=== PATIENT | female | born 1960 | race Caucasian/White ===

== ENCOUNTER 2018-11-29 09:35 | Emergency (ER) | payer OTHER ==
[~2018-11-29] VITALS: Ht 160 cm; Wt 122.5 kg
[2018-11-29] MEDS ORDERED: CENTRUM SILVER1 EAC4 PO (09:42)
[2018-11-29] MEDS ORDERED: FOLBIC RF TABL1 EACH PO (09:43)
[2018-11-29] MEDS ORDERED: IBUPROFEN 400400 M2 PO (09:43)
[2018-11-29 10:59] LABS: URINE BILIRUBIN NEGATIVE (Negative); URINE BLOOD NEGATIVE (Negative); URINE CLARITY CLEAR; URINE COLOR YELLOW; URINE GLUCOSE-RANDOM NEGATIVE (Negative); URINE KETONES NEGATIVE (Negative); URINE LEUKOCYTES-REFLEX NEGATIVE (Negative); URINE NITRITE-REFLEX NEGATIVE (Negative); URINE PROTEIN NEGATIVE (Negative); URINE SPECIFIC GRAVITY 1.015 (1.005-1.030); URINE UROBILINOGEN 0.2 E.U./dl (0.2-1.0)
[2018-11-29 11:35] VITALS: BP 189/96
[2018-11-29] MEDS ORDERED: LIDODERM1 EACH TOP (11:38)
[2018-11-29] MEDS ORDERED: MEDROLDOSEPACK PO (11:38)
== END 2018-11-29 11:35 | disposition home or self-care (01) ==
LOC: M.ERS 09:35
PROVIDERS: Physician Assistant
DX: M54.14 Radiculopathy, thoracic region (principal); M62.830 Muscle spasm of back; F17.210 Nicotine dependence, cigarettes, uncomplicated; Z90.49 Acquired absence of other specified parts of digestive tract; Z90.721 Acquired absence of ovaries, unilateral; Z88.5 Allergy status to narcotic agent; Z88.6 Allergy status to analgesic agent

== ENCOUNTER → 2018-12-01 | Outpatient (CLI) | payer OTHER ==
[~2018-12-01] MED LIST: CENTRUM SILVER1 EAC4 PO; FOLBIC RF TABL1 EACH PO; IBUPROFEN 400400 M2 PO; LIDODERM1 EACH TOP; MEDROLDOSEPACK PO
== END ==
LOC: M.MRI 11:32
DX: S12.501D Unspecified nondisplaced fracture of sixth cervical vertebra, subsequent encounter for fracture with routine healing (principal); M47.22 Other spondylosis with radiculopathy, cervical region; M50.11 Cervical disc disorder with radiculopathy, high cervical region; M48.02 Spinal stenosis, cervical region; M54.6 Pain in thoracic spine; X58.XXXD Exposure to other specified factors, subsequent encounter

== ENCOUNTER → 2018-12-16 | Outpatient (CLI) | payer OTHER | LOC: M.RAD 09:59 | DX: Z13.820 Encounter for screening for osteoporosis (principal); Z87.81 Personal history of (healed) traumatic fracture; Z78.0 Asymptomatic menopausal state; Z88.8 Allergy status to other drugs, medicaments and biological substances ==

== ENCOUNTER → 2018-12-22 | Outpatient (CLI) | payer OTHER ==
[~2018-12-22] MED LIST changes: +AMITRIPTYLINE H10 M3 PO; +FLEXERIL PO; +GABAPENTIN 100100 MG PO
--- NOTE | ~2018-12-22 | PAINCON ---
[address] [address] PAIN MANAGEMENT CONSULTATION Name: THEO SMITH [facility] [id number] Admission: 12/22/18 Attend Phys: Mercedes Clark MD Discharge: Date of : 58 Report #: [id number] THIS REPORT FOR: //name// CC: Mercedes Amezquita DATE OF SERVICE: 12/22/2018 CHIEF COMPLAINT: Neck and arm pain. HISTORY OF PRESENT ILLNESS: The patient is a 58-year-old female who has been referred to the pain clinic for evaluation of neck and arm pain. The patient has had pain, which has increased over the past few weeks. It was quite problematic. As a result of the pain, she went to the Emergency Room. At that time, she complained of numbness and tingling in her hands and some in her feet. Denies any trauma. The patient has not had surgery. She describes the pain as sharp with a deep ache in her neck. Notes that her pain is worse when she is extending her arms. She has tried nonsteroidal anti-inflammatory medications. She did have a history of a fracture at C6 and C7 some years ago. The patient has tried Flexeril, also has taken a Medrol dosing of steroids. The most uncomfortable feeling today is that involving her right arm. She feels as though there is some electricity shooting through it. Feels that there is a rubber band around it, constricting it. She rates it as approximately 10/10 at this point. 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 ALLERGIES: ACETAMINOPHEN from [facility], HYDROCODONE from [facility]. MEDICATIONS: B12, calcium, B6, Flexeril 10 mg t.i.d., Motrin 400 mg q. 6 hours, multivitamin, and Centrum silver. PAST MEDICAL HISTORY: Neck surgery C6-C7. PAST SURGICAL HISTORY: Tonsillectomy and adenoidectomy 1963, right oophorectomy/appendectomy in 1981. Neck surgery C6/C7 in 2006 with cadaver bone placed. 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 She is working at this juncture. REVIEW OF SYSTEMS: Generally good health, fatigue, weakness, wears glasses, weakness of muscles, muscle pain, back pain, difficulty walking, numbness and tingling sensation. PAIN CLINIC ASSESSMENT/PQRS: 1. History of osteoarthritis. The patient had osteoarthritic change in her neck. She had surgery and fusion at C5-C6. 2. Arthritis patient is not [place] [address] PAIN MANAGEMENT CONSULTATION Name: THEO SMITH Room: [facility]#: [id number] Admission: 12/22/18 Attend Phys: Mercedes Clark MD Discharge: Date of : 58 Report #: [id number] 3. Height 5 feet 4 inches, weight 270 pounds. 4. VITAL SIGNS: Blood pressure 161/106, second blood pressure 170/106, heart rate 103, respiratory rate 16, room air saturation is 95%, temperature 98.4. 5. Pain intensity 7/10. 6. Fall risk. The patient has a fall has not fallen in the last 3 months. 7. Blood thinner. The patient is not on a blood thinning medication. 8. Hypertension. The patient is being treated for hypertension. 9. Opioids greater than 6 weeks. The patient is not receiving opioids on a regular basis. 10. Risk assessment tool, low for opioid use. 11. Functional assessment tool. 12. Recreational drug use. The patient denies use of recreational drugs. 13. Tobacco: The patient does smoke cigarettes, approximately 2 packs per day. 14. Alcohol: The patient denies use of frequent use of alcoholic drugs. PHYSICAL EXAMINATION: GENERAL: The patient is a well-developed, well-nourished, somewhat obese white female, appears her stated age. She is alert and oriented x 3. Her affect is appropriate. Speech is fluent. HEENT: Normocephalic, atraumatic. Extraocular eye muscles intact. Sclerae nonicteric. Mucous membranes are moist. NECK: Without adenopathy or JVD. The patient has a well-healed scar in the anterior area near the C6 and C7 area. She complains of pain and discomfort with numbness down into her left arm with a feeling of tingling and electricity in this area. Feels that there is tight band around the biceps area. HEART: Regular rate. ABDOMEN: Nontender, protuberant. Bowel sounds present. EXTREMITIES: Upper extremity muscle strength on the right, judged to be 4+/5 and on the left is 5-/5. The patient without significant scoliosis, kyphosis or lordosis. Lower extremity muscle strength is judged to be 5-/5 for the major muscle groups in the lower extremity. Deep tendon reflexes are difficult to appreciate in the patellar as well as the ankle jerks. Forward bending to about 90 degrees caused some slight increase in pain. Forward leaning reproduce some soreness that the patient has been experiencing in the low back area. IMPRESSION: 1. Cervical radiculopathy with pain radiating down into both arms with numbness and tingling in the left arm and a tight band like sensation around the right biceps. 2. Tobacco use. RECOMMENDATION: The patient is having pain and discomfort in the neck area. As you recall, she has had cervical fusion at C6-C7. Continues to have some numbness and tingling down into her right arm as well as some feeling of tightness in the right biceps. She has undergone EMGs a number of years ago. Nothing that has been performed since this problem. She is using Neurontin [address] [place] [address] PAIN MANAGEMENT CONSULTATION Name: THEO SMITH Room: [facility]#: [id number] Admission: 12/22/18 Attend Phys: Mercedes Clark MD Discharge: Date of : 58 Report #: [id number] mg at bedtime. She stopped this secondary to side effects. She also has been using Flexeril 10 mg t.i.d. p.r.n. for muscle spasms. She tried a Medrol Dosepak. She had 2 rounds of this. Pain has persisted. She will return to the pain clinic at which time a cervical epidural steroid injection will be performed. She also has pain and discomfort that radiates down into her legs below the knees bilaterally. This seems more like a neuropathic type of pain. We will have the patient try Elavil 10 mg at bedtime. She will slowly increase this medication as we have directed. Hopefully, she will find sleeping, it becomes more beneficial. Hopefully, the numbness and tingling sensation in the neck as well as lower extremities will improve. We will decrease her Neurontin from 300 mg to 100 mg and she will try this 100 mg 3 times daily. She will return to the pain clinic after precertification from her insurance carrier. At that time she will then undergo a cervical epidural steroid injection to help decrease the pain and discomfort which she is experiencing. We have discussed the possible complications of the procedure, which could include but are not limited to infection, bleeding, worsening of pain, headache, nerve damage. We have also used a model to point out to the patient the area of probable pathology. She will call us if she has any concerns with the amitriptyline or the gabapentin. Again, once the patient returned to the pain clinic, we will proceed with a cervical epidural steroid injection to help quell her pain. We would like to thank you for letting us participate in her care. We hope she continues to improve. By: [id number]. Sandro Clark MD /nt
== END ==
LOC: M.PC 04:54
DX: M54.16 Radiculopathy, lumbar region (principal); R20.0 Anesthesia of skin; M79.601 Pain in right arm; M79.602 Pain in left arm; F17.200 Nicotine dependence, unspecified, uncomplicated; Z79.899 Other long term (current) drug therapy

== ENCOUNTER → 2018-12-24 | Outpatient (CLI) | payer OTHER ==
--- NOTE | ~2018-12-24 | PAINCON ---
[address] [address] PAIN MANAGEMENT CONSULTATION Name: THEO SMITH Room: [facility]#: [id number] Admission: 12/24/18 Attend Phys: Mercedes Clark MD Discharge: Date of : 58 Report #: [id number] THIS REPORT FOR: //name// CC: Mercedes Amezquita NP DATE OF SERVICE: 12/24/2018 CHIEF COMPLAINT: Neck and arm pain. HISTORY: The patient is a 58-year-old female who has been seen in the Pain Clinic. She has pain and discomfort, which is quite problematic. She has been experiencing pain with numbness and tingling in her hands. She denies any trauma. She has not had surgery. She has tried nonsteroidal anti-inflammatory medications. Does have a history of a fracture at C6-C7, some years ago. Medrol Dosepak was tried, but the patient continues to have pain, which is uncomfortable. She feels like she is having some electricity moving down into her hands. She feels sometimes as though she has some rubber around her arm and that it is essie. ALLERGIES: ACETAMINOPHEN FROM [facility], HYDROCODONE FROM [facility] PAIN CLINIC ASSESSMENT/PQRS: 1. The patient has osteoarthritic changes in her neck. She has had surgery and fusion at C6-C7. 2. Arthritis. The patient is not being treated for rheumatoid arthritis. 3. Height 5 feet 4 inches, weight 270 pounds, BMI is 46.0. 4. Vital Signs: Blood pressure 171/97, heart rate 95, respiratory rate 16, room air saturation 95%, temperature is 98.2. 5. Pain intensity, 01/04. 6. Fall history: The patient has not fallen in the last 3 months. 7. Blood thinner. The patient is not on a blood thinning medication. 8. Hypertension. The patient is not being treated for hypertension. 9. Opioids greater than 6 weeks. The patient is not receiving opioid medication on a regular basis. 10. Risk assessment tool, low for opioid use. 11. Functional assessment tool. 12. Recreational drug use. The patient denies use of recreational drugs. 13. Tobacco: The patient does smoke cigarettes, approximately 2 packs a day. 14. Alcohol. The patient denies recurrent use of alcoholic beverages. PHYSICAL EXAMINATION: GENERAL: The patient is a well-developed, well-nourished, somewhat obese white female, appears her stated age. She is alert and oriented x 3. Her affect is appropriate. [place] [address] PAIN MANAGEMENT CONSULTATION Name: THEO SMITH Dayanna Room: [facility]#: [id number] Admission: 12/24/18 Attend Phys: Mercedes Clark MD Discharge: Date of : 58 Report #: [id number] HEENT: Normocephalic, atraumatic. Extraocular eye muscles intact. Sclerae nonicteric. Mucous membrane moist. NECK: Without adenopathy or JVD. The patient has a well-healed scar in the anterior portion at the C6-C7 area. The patient has pain and discomfort with numbness radiates down to the left arm with a feeling of tingling and electricity in this area. The patient feels as a tight band around the biceps of her arm. HEART: Regular rate. S1, S2. Distant tones. ABDOMEN: Nontender. Bowel sounds are distant. EXTREMITIES: Upper extremity muscle strength is judged to be 4+/5 on the right and left is 5-/5. The patient is without significant scoliosis, kyphosis or lordosis. Lower extremity muscle strength is judged to be 5-/5 for the major muscle groups in the lower extremity. IMPRESSION: 1. Cervical radiculopathy with pain radiating down into both arms with numbness and tingling in the left arm and a tight band like sensation around the right bicep. 2. Chronic tobacco use. 3. Obesity. RECOMMENDATIONS: We discussed treatment options with the patient. Risks and benefits of a cervical epidural steroid injection were discussed. They include but are not limited to infection, worsening of pain, no improvement in pain, bleeding, spinal headache. The patient elects to proceed. PROCEDURE NOTE: The patient was taken to the procedure area. She was then placed in the appropriate position with a pillow under her chest to improve positioning. Her neck was sterilely prepped with a Betadine solution. Fluoroscopy using anterior folks posterior as well as lateral viewing were implemented. The patient's neck was infiltrated with 0.25% bupivacaine. A skin wheal was prepared at C7/T1. This area was then infiltrated with 0.25% bupivacaine to numb it. A 17-gauge Tuohy with loss of resistance technique was used to gain access to the epidural space. There was no CSF, heme or paresthesia. Total of 20 seconds fluoroscopy time was used. A total of 120 mg triamcinolone was injected. The patient tolerated the procedure well. Her pain decreased to 2 at the time of discharge. She will follow up in the future as needed. We would like to thank you for letting us participate in her care. We hope she continues to improve. By: [id number]. Sandro Clark MD /jonas
== END | disposition home or self-care (01) ==
LOC: M.PC 12:35
DX: M54.12 Radiculopathy, cervical region (principal); G89.29 Other chronic pain; E66.09 Other obesity due to excess calories; F17.210 Nicotine dependence, cigarettes, uncomplicated; Z88.8 Allergy status to other drugs, medicaments and biological substances; Z68.42 Body mass index [BMI] 45.0-49.9, adult; Z79.899 Other long term (current) drug therapy

== ENCOUNTER → 2018-12-30 | Outpatient (CLI) | payer OTHER ==
[2018-12-30 10:39] LABS: URINE BILIRUBIN NEGATIVE (Negative); URINE BLOOD NEGATIVE (Negative); URINE CLARITY CLEAR; URINE COLOR YELLOW; URINE GLUCOSE-RANDOM NEGATIVE (Negative); URINE KETONES NEGATIVE (Negative); URINE LEUKOCYTES NEGATIVE (Negative); URINE NITRITE NEGATIVE (Negative); URINE PROTEIN TRACE (Negative); URINE SPECIFIC GRAVITY >= 1.030 (1.005-1.030); URINE UROBILINOGEN 0.2 E.U./dl (0.2-1.0)
[2018-12-30 10:39] LABS: HEMATOCRIT 50.1 % (37.0-47.0); HEMOGLOBIN 16.8 gm/dL (12.0-15.0); MCH 32.1 pg (26.0-34.0); MCHC 33.5 g/dL (28.0-37.0); MCV 95.9 fL (80.0-100.0); MPV 10.4 fl. (7.2-11.1); NUCLEATED RBCS 0 /100WBC; PLATELET COUNT* 232 thou/uL (150-400); RBC 5.23 mil/uL (4.20-5.00); RDW-CV 13.2 % (10.5-14.5); WBC 13.5 thou/uL (4.0-11.0)
[2018-12-30 11:01] LABS: ABSOLUTE EOSINOPHILS 0.1 thou/uL (0.0-0.7); ABSOLUTE LYMPHOCYTES 0.7 thou/uL (0.8-5.3); ABSOLUTE MONOCYTES 1.8 thou/uL (0.0-1.2); ABSOLUTE NEUTROPHILS 10.9 thou/uL (1.6-8.1)
[2018-12-30 11:02] LABS: ANISOCYTOSIS 1+; PLATELET ESTIMATE ADEQUATE; POIKILOCYTOSIS 1+
[2018-12-30 11:13] LABS: ALKALINE PHOSPHATASE 59 U/L (46-116); ANION GAP 14 mmol/L (7-16); BUN 25 mg/dL (7-18); CHLORIDE 99 mmol/L (98-107); CHOLESTEROL 229 mg/dL (<200); CO2 22 mmol/L (21-32); CREATININE 1.3 mg/dL (0.6-1.3); GLUCOSE 313 mg/dL (70-99); HDL CHOLESTEROL 63 mg/dL (>40); LDL CHOLESTEROL 136 mg/dL (<100); POTASSIUM 4.2 mmol/L (3.5-5.1); SGOT 15 U/L (15-37); SGPT 41 U/L (30-65); SODIUM 135 mmol/L (136-145); TC:HDL 3.6 Ratio (Not establshd); TOTAL BILIRUBIN 1.1 mg/dL (<0.1-1.0); TOTAL PROTEIN 7.6 g/dL (6.4-8.2); TRIGLYCERIDE 152 mg/dL (<150); URIC ACID* 4.2 mg/dL (2.6-7.2); VLDL 30 mg/dL (<40)
[2018-12-30 11:22] LABS: SERUM ASSESSMENT Clear
[2018-12-31 12:05] LABS: GLYCOHEMOGLOBIN (HGB A1C) 8.6 % (4.8-5.6)
== END ==
LOC: M.LAB 10:21
PROVIDERS: Family Medicine
DX: M10.9 Gout, unspecified (principal); I10 Essential (primary) hypertension; Z68.42 Body mass index [BMI] 45.0-49.9, adult

== ENCOUNTER 2019-01-06 17:28 | Inpatient (IN) | payer OTHER ==
[~2019-01-06] VITALS: Ht 160 cm; Wt 119.3 kg
[2019-01-06 17:42] VITALS: BP 126/88
[2019-01-06] MEDS ORDERED: LISINOPRIL20 MG PO (17:48)
[2019-01-06] MEDS ORDERED: CHLORTHALIDONE25 MG PO (17:48)
[2019-01-06] MEDS ORDERED: CENTRUM SILVER1 EAC4 PO (17:49)
[2019-01-06 18:27] LABS: HEMATOCRIT 49.9 % (37.0-47.0); HEMOGLOBIN 16.8 gm/dL (12.0-15.0); MCH 32.5 pg (26.0-34.0); MCHC 33.7 g/dL (28.0-37.0); MCV 96.3 fL (80.0-100.0); MPV 10.7 fl. (7.2-11.1); NUCLEATED RBCS 0 /100WBC; PLATELET COUNT* 180 thou/uL (150-400); RBC 5.18 mil/uL (4.20-5.00); RDW-CV 13.1 % (10.5-14.5); WBC 17.4 thou/uL (4.0-11.0)
[2019-01-06 18:35] LABS: ANION GAP 11 mmol/L (7-16); BUN 55 mg/dL (7-18); CALCIUM 10.4 mg/dL (8.5-10.1); CHLORIDE 97 mmol/L (98-107); CO2 26 mmol/L (21-32); CREATININE 3.1 mg/dL (0.6-1.3); GLUCOSE 297 mg/dL (70-99); POTASSIUM 4.6 mmol/L (3.5-5.1); SODIUM 134 mmol/L (136-145)
[2019-01-06 18:45] LABS: ALBUMIN 4.2 g/dL (3.4-5.0); ALKALINE PHOSPHATASE 70 U/L (46-116); SGOT 20 U/L (15-37); SGPT 64 U/L (30-65); TOTAL BILIRUBIN 0.8 mg/dL (<0.1-1.0); TOTAL PROTEIN 7.6 g/dL (6.4-8.2); TROPONIN-I LEVEL <0.06 ng/mL (<0.06)
[2019-01-06 19:04] LABS: ABSOLUTE LYMPHOCYTES 2.1 thou/uL (0.8-5.3); ABSOLUTE MONOCYTES 2.1 thou/uL (0.0-1.2); ABSOLUTE NEUTROPHILS 13.2 thou/uL (1.6-8.1)
[2019-01-06 19:05] LABS: PLATELET ESTIMATE ADEQUATE
[2019-01-06 19:57] LABS: URINE BILIRUBIN NEGATIVE (Negative); URINE BLOOD 3+ (Negative); URINE CLARITY CLEAR; URINE COLOR YELLOW; URINE GLUCOSE-RANDOM TRACE (Negative); URINE KETONES TRACE (Negative); URINE LEUKOCYTES-REFLEX TRACE (Negative); URINE NITRITE-REFLEX NEGATIVE (Negative); URINE PROTEIN 2+ (Negative); URINE SPECIFIC GRAVITY >= 1.030 (1.005-1.030); URINE UROBILINOGEN 0.2 E.U./dl (0.2-1.0)
[2019-01-06 20:15] LABS: HYALINE CASTS >10 Many /LPF (None Seen); SQUAMOUS >10 Many /LPF (0-3)
[2019-01-06 20:16] LABS: BACTERIA-REFLEX 1-9 Few /HPF (None Seen); URINE WBC-REFLEX 0-5 Rare /HPF (0-5)
[2019-01-06 20:17] LABS: CRYSTALS None Seen /LPF (None Seen); URINE RBC 3-10 Few /HPF (0-2)
[2019-01-06 20:18] LABS: MUCUS 0-3 Light strn/LPF (None Seen)
[2019-01-07 00:56] VITALS: BP 141/70
[2019-01-07 04:22] VITALS: BP 112/59
[2019-01-07 11:58] VITALS: BP 134/67
[2019-01-07 16:48] VITALS: BP 122/71
[2019-01-07 17:11] LABS: GLYCOHEMOGLOBIN (HGB A1C) 9.4 % (4.8-5.6)
--- NOTE | 2019-01-07 17:11 | EKG ---
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
[2019-01-07 18:59] LABS: BE -2.3 mmol/L (-2 to +3); PCO2 VENOUS 37.4 mmHg (41.0-51.0); PO2 VENOUS 51.8 mmHg (35.0-45.0)
[2019-01-07 19:04] LABS: ABSOLUTE EOSINOPHILS 0.1 thou/uL (0.0-0.7); ABSOLUTE NEUTROPHILS 8.4 thou/uL (1.6-8.1); BASOPHILS 0.4 %; EOSINOPHILS 0.5 %; HEMATOCRIT 43.3 % (37.0-47.0); LYMPHOCYTES 17.6 %; MCH 32.2 pg (26.0-34.0); MCHC 33.6 g/dL (28.0-37.0); MCV 95.9 fL (80.0-100.0); MONOCYTES 8.7 %; MPV 10.9 fl. (7.2-11.1); NUCLEATED RBCS 0 /100WBC; PLATELET COUNT* 153 thou/uL (150-400); POLYS 72.8 %; RBC 4.52 mil/uL (4.20-5.00); RDW-CV 12.8 % (10.5-14.5); WBC 11.6 thou/uL (4.0-11.0)
--- NOTE | 2019-01-07 19:06 | NUR ---
PATIENT RECEIVED FROM ER AT 1245, ALERT AND ORIENTED X4. VSS. NS AT 130 MLS/HR. ADMISSION PROCESS COMPLETED. TOLERATED HER MEALS. PLANNED FOR CARDIAC STRESS TEST TOMORROW. INSULIN ADMINISTERED PER PROTOCOL. DENIES PAIN.
[2019-01-07 19:15] LABS: ALBUMIN 3.2 g/dL (3.4-5.0); CALCIUM 8.8 mg/dL (8.5-10.1); POTASSIUM 4.6 mmol/L (3.5-5.1); TOTAL BILIRUBIN 0.5 mg/dL (<0.1-1.0); TOTAL PROTEIN 6.2 g/dL (6.4-8.2)
[2019-01-07 19:17] LABS: CREATININE 1.6 mg/dL (0.6-1.3)
[2019-01-07 19:18] LABS: HEMOGLOBIN 14.5 gm/dL (12.0-15.0)
[2019-01-07 20:00] VITALS: BP 131/76
--- NOTE | 2019-01-07 20:00 | NUR ---
RECEIVED REPORT AND ASSUMED CARE OF PT, ASSESSMENT COMPLETED. RESTING IN BED WATCHING TV. NO COMPLAINTS VOICED. DISCUSSED LAB RESULTS AND KIDNEYS. TELEMTRY ON SHOWING SR WITH BBB. WILL CONT TO MONITOR AND ASSIST NEEDED.
[2019-01-07 20:28] LABS: ESR (SEDRATE) 4 mm/hr (0-30)
[2019-01-07 23:53] VITALS: BP 130/66
[2019-01-08 04:00] VITALS: BP 132/79
--- NOTE | 2019-01-08 07:44 | NUR ---
AWAKE FREQ TONIGHT. STATES ALITTLE DIZZY THIS MORNING. TELEMETRY SHOWING SR WITH BBB. ASSESSMENT UNCHANGED. HS GOALS OF REST AND SAFETY ACHIEVED. HOURLY ROUNDING OBSERVED.
[2019-01-08 09:35] VITALS: BP 144/80
--- NOTE | 2019-01-08 10:21 | 2DMMODE ---
[place] [address] 2 D/M-MODE ECHOCARDIOGRAM Name: THEO SMITH Room: [address] IN [facility]#: [id number] Admission: 01/06/19 Attend Phys: Jacek Carver Discharge: Date of : 58 Date of Service: 01/08/19 1021 Report #: [id number] THIS REPORT FOR: //name// APPROVED REPORT Study performed: 01/07/2019 10:00:48 EXAM: Comprehensive 2D, Doppler, and color-flow Echocardiogram Patient Location: In-Patient Room #: er Status: routine BSA: 2.14 HR: 61 bpm BP: 105/52 mmHg Rhythm: NSR Other Information Study Quality: Good Indications Abnormal ECG 2D Dimensions IVSd: 16.35 (7-11mm) LVOT Diam: 18.47 (18-24mm) LVDd: 41.82 mm PWd: 12.31 (7-11mm) Ascending Ao: 27.92 (22-36mm) LVDs: 24.33 (25-40mm) Aortic Root: 27.39 mm Volumes Left Atrial Volume (Systole) LA ESV Index: 20.20 mL/m2 Aortic Valve AoV Peak Prosper.: 1.98 m/s AO Peak Gr.: 15.68 mmHg LVOT Max P.53 mmHg AO Mean Gr.: 8.90 mmHg LVOT Mean P.33 mmHg LVOT Max V: 1.46 m/s AO V2 VTI: 34.71 cm LVOT Mean V: 0.96 m/s ALVARADO (VTI): 2.14 cm2 LVOT V1 VTI: 27.72 cm AI Coffey: 2.16 m/s2 AI PHT: 548.08 ms Mitral Valve E/A Ratio: 1.00 [place] [address] 2 D/M-MODE ECHOCARDIOGRAM Name: THEO SMITH Room: [address] IN .R.#: [id number] Admission: 01/06/19 Attend Phys: Jacek Carver Discharge: Date of : 58 Date of Service: 01/08/19 1021 Report #: [id number] MV Decel. Time: 196.83 ms MV E Max Prosper.: 0.97 m/s MV PHT: 57.08 ms MVA (PHT): 3.85 cm2 TDI E/Lateral E': 9.70 E/Medial E': 10.78 Medial E' Prosper.: 0.09 m/s Lateral E' Prosper.: 0.10 m/s Pulmonary Valve PV Peak Prosper.: 1.35 m/s PV Peak Gr.: 7.26 mmHg Left Ventricle The left ventricle is normal size. There is normal LV segmental wall motion. Moderate concentric left ventricular hypertrophy. Left ventricular systolic function is normal. LVEF is 60-65%. Transmitral Doppler flow pattern suggests impaired LV relaxation. Right Ventricle The right ventricle is normal size. The right ventricular systolic function is normal. Atria The left atrium size is normal. The right atrium size is normal. Aortic Valve The aortic valve is normal in structure. Mild aortic regurgitation. There is no aortic valvular stenosis. Mitral Valve The mitral valve is normal in structure. There is no mitral valve regurgitation noted. No evidence of mitral valve stenosis. Tricuspid Valve The tricuspid valve is normal in structure. Unable to assess PA pressure. Trace tricuspid regurgitation. Pulmonic Valve The pulmonary valve is normal in structure. There is no pulmonic valvular regurgitation. Great Vessels The aortic root is normal in size. IVC is normal in size and collapses >50% [place] [address] 2 D/M-MODE ECHOCARDIOGRAM Name: SARAHTHEO Dayanna Room: [address] IN [facility]#: [id number] Admission: 01/06/19 Attend Phys: Jacek Carver Discharge: Date of : 58 Date of Service: 01/08/19 1021 Report #: [id number] Pericardium There is no pericardial effusion. <Conclusion> The left ventricle is normal size. Moderate concentric left ventricular hypertrophy. Left ventricular systolic function is normal. LVEF is 60-65%. Transmitral Doppler flow pattern suggests impaired LV relaxation. Mild aortic regurgitation. Trace tricuspid regurgitation. <ELECTRONICALLY SIGNED> By: Fernandez Herring MD, FACC 01/08/19 1021 1021 1021 Fernandez Herring MD, FACC /INF
[2019-01-08 10:51] LABS: HEMOGLOBIN 14.5 gm/dL (12.0-15.0); NUCLEATED RBCS 0 /100WBC
[2019-01-08 10:54] LABS: ABSOLUTE BASOPHILS 0.1 thou/uL (0.0-0.2); ABSOLUTE EOSINOPHILS 0.1 thou/uL (0.0-0.7); ABSOLUTE NEUTROPHILS 7.6 thou/uL (1.6-8.1); BASOPHILS 0.9 %; EOSINOPHILS 0.5 %; HEMATOCRIT 42.6 % (37.0-47.0); LYMPHOCYTES 18.6 %; MCH 32.7 pg (26.0-34.0); MCV 96.3 fL (80.0-100.0); MONOCYTES 9.1 %; MPV 11.1 fl. (7.2-11.1); PLATELET COUNT* 135 thou/uL (150-400); POLYS 70.9 %; RBC 4.43 mil/uL (4.20-5.00); RDW-CV 12.9 % (10.5-14.5); WBC 10.8 thou/uL (4.0-11.0)
[2019-01-08 12:18] VITALS: BP 143/73
[2019-01-08 12:19] LABS: CREATININE 1.3 mg/dL (0.6-1.3); POTASSIUM 4.3 mmol/L (3.5-5.1)
--- NOTE | 2019-01-08 16:16 | CARDNUC ---
[place] [address] CARDIAC NUCLEAR IMAGING REPORT Name: THEO SMITH Room: [address] IN [facility]#: [id number] Admission: 01/06/19 Attend Phys: Jacek Carver Discharge: Date of : 58 Date of Service: 01/08/19 1616 Report #: [id number] THIS REPORT FOR: //name// APPROVED REPORT Study performed: 01/07/2019 09:57:00 Indication: dizzyness Patient Location: In-Patient Room #: 215 Stress Tech: Megan Smith Stress Nurse: Sharona Clemens RN Ht: 5 ft 4 in Wt: 254 lbs BSA: 2.17 m2 BMI: 43.59 Medical History Medical History: hyperlipidemia, hypertension Medications: lisinopril, chlorthiadone Allergies: hydrocodone Cardiac Risk Factors: age, hyperlipidemia, hypertension, tobacco, family hx Exercise History: Physically active Resting Data Rest SPECT myocardial perfusion imaging was performed in supine position 30 minutes following the intravenous injection of 38.5 mCi of Tc-99m Sestamibi. Time of rest injection: 1030 The images were gated to evaluate regional wall motion and calculate left ventricular ejection fraction. Administration Route: IV Administration Site: Right Hand Pharmacologic Stress Pharmacologic stress test was performed by injecting Regadenoson 0.4 mg IV push over 10-15 seconds immediately followed by the intravenous injection of 38.6 mCi of Tc-99m Sestamibi. Time of stress injection: 1010 Administration Route: IV Administration Site: Right Hand Heart Rate at time of stress injection: 115 bpm. Gated Stress SPECT was performed 45 minutes after stress injection. The images were gated to evaluate regional [place] [address] CARDIAC NUCLEAR IMAGING REPORT Name: THEO SMITH Room: [address]#: [id number] Admission: 01/06/19 Attend Phys: Jacek Carver Discharge: Date of : 58 Date of Service: 01/08/19 1616 Report #: [id number] left ventricular ejection fraction. Prone imaging was performed. Stress Test Details Stress Test: Pharmacologic stress testing performed using 0.4 mg of regadenoson per 5 mL given IV over 10 seconds. Reason for pharmacologic stress test: LBBB. HR Max Heart Rate (APMHR): 161 bpm Resting HR: 75 bpm Target HR (85% APMHR): 136 bpm Max HR Achieved: 115 bpm % of APMHR: 71 Recovery HR: 108 bpm BP Resting BP: 156/82 mmHg Max BP: 150/105 mmHg Recovery BP: 154/94 mmHg ECG Resting ECG: Sinus Rhythm, LBBB Stress ECG: Sinus Rhythm, LBBB ST Change: None Arrhythmia: None Recovery ECG: Sinus Rhythm, LBBB Recovery ST Change: None Recovery Arrhythmia: None Clinical Reason for Termination: Completed protocol Exercise duration: 0 min sec Exercise capacity: 1 METs The patient tolerated Lexiscan infusion without significant symptoms. Nurse Comments pt tolerated well Stress ECG Conclusion The baseline EKG shows sinus rhythm with left bundle-branch block. EKGs obtained during and post Lexiscan infusion showed sinus rhythm and sinus tachycardia with left bundle-branch block. There were no stress-induced arrhythmias. Study Quality Study: Good Artifact: [place] [address] CARDIAC NUCLEAR IMAGING REPORT Name: THEO SMITH Room: [address] IN [facility]#: [id number] Admission: 01/06/19 Attend Phys: Jacek Carver Discharge: Date of : 58 Date of Service: 01/08/19 1616 Report #: [id number] Study Data At rest, the left ventricular ejection fraction was 65%.. Post stress, the left ventricular ejection was history%.. TID = 1.10. Perfusion Normal left ventricular perfusion. Wall Motion There is left ventricular systolic is Synergy consistent with bundle branch block. Global LV systolic function is well-preserved. Nuclear Conclusion ECG Findings: non-diagnostic Clinical Findings: negative for ischemia Nuclear Findings: negative for ischemia Exercise Capacity: not assessed Left Ventricular Function: preserved Risk Study: low Myocardial perfusion images showed no defect to suggest infarct or ischemia. Global LV systolic function is preserved. This is a low risk study. <Conclusion> The baseline EKG shows sinus rhythm with left bundle-branch block. EKGs obtained during and post Lexiscan infusion showed sinus rhythm and sinus tachycardia with left bundle-branch block. There were no stress-induced arrhythmias. <ELECTRONICALLY SIGNED> By: Fernandez Herring MD, FACC 01/08/19 1616 1616 1616 Fernandez Herring MD, FACC /INF
[2019-01-08] MEDS ORDERED: GLUCOTROL5 MG PO (16:18)
[2019-01-08] MEDS ORDERED: GLUCOPHAGE1000 MG PO (16:19)
[2019-01-08] MEDS ORDERED: NORVASC5 MG PO (16:20)
[2019-01-08 16:22] VITALS: BP 143/73
[2019-01-08] MEDS ORDERED: CEFDINIR300 MG PO (16:26)
--- NOTE | 2019-01-08 17:44 | NUR ---
PT GIVEN GLUCOMETER. EDUCATION ON HOW TO USE THE GLUCOMETER GIVEN. SCRIPTS AND CARE NOTES ON NEW MEDIATIONS GIVEN TO PT. PT EDUCATED ON NEW MEDICATIONS. PT EDUCATION ON F/U WITH PCP. PT COMMUNICATES UNDERSTANDING. IV AND DEPUTY [facility] ATTORNEY DC'D. ALL BELONGINGS PACKED UP AND LEFT WITH PT.
== END 2019-01-08 17:50 | disposition home or self-care (01) | DRG 871 ==
LOC: M.ERS 17:28 → M.TBA-ER 20:30 → M.2W 01-07 12:14
PROVIDERS: Internal Medicine; Nurse Practitioner Family; ADMIT Internal Medicine
DX: A41.9 Sepsis, unspecified organism (principal); N17.0 Acute kidney failure with tubular necrosis; N30.01 Acute cystitis with hematuria; E87.0 Hyperosmolality and hypernatremia; I44.7 Left bundle-branch block, unspecified; R73.9 Hyperglycemia, unspecified; F17.210 Nicotine dependence, cigarettes, uncomplicated; E78.5 Hyperlipidemia, unspecified; Z71.6 Tobacco abuse counseling; Z90.49 Acquired absence of other specified parts of digestive tract; Z90.721 Acquired absence of ovaries, unilateral; Z88.6 Allergy status to analgesic agent

== ENCOUNTER → 2019-01-21 | Outpatient (CLI) | payer OTHER ==
[~2019-01-21] MED LIST changes: +CEFDINIR300 MG PO; +CHLORTHALIDONE25 MG PO; +GLUCOPHAGE1000 MG PO; +GLUCOTROL5 MG PO; +LISINOPRIL20 MG PO; +NORVASC5 MG PO
== END ==
LOC: M.ULTRA 01-15 16:39
DX: Z12.31 Encounter for screening mammogram for malignant neoplasm of breast (principal); D25.9 Leiomyoma of uterus, unspecified; K80.80 Other cholelithiasis without obstruction; K76.0 Fatty (change of) liver, not elsewhere classified; Z95.0 Presence of cardiac pacemaker

== ENCOUNTER → 2019-04-19 | Day surgery (SDC) | payer OTHER ==
[~2019-04-19] MED LIST changes: +TRAMADOL 50 MG50 MG PO
--- NOTE | ~2019-04-19 | OP ---
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 POSTOPERATIVE DIAGNOSES: Porcelain gallbladder and cholelithiasis. PROCEDURE: Diagnostic laparoscopy with biopsy of the gallbladder capsule and frozen section. SURGEON: DO NIKOLAS Alas SEALER SANDER: Clive Shrestha DO ANESTHESIA: General endotracheal. ESTIMATED BLOOD LOSS: Less than 10 mL. COMPLICATIONS: None. There was also intraoperative consultation with Dr. Julius Gomez, our pathologist, who performed frozen section and also visualized the gallbladder during the laparoscopy with me. DESCRIPTION OF PROCEDURE: After obtaining proper consents and discussing risks and complications with the patient, she was taken to the operating room, laid in the supine position, administered general endotracheal anesthetic. She was then prepped and draped in the usual sterile fashion. A timeout was performed. We confirmed the appropriate patient and procedure. Preoperative antibiotics had been given. SCDs were in place. We then made a small supraumbilical skin incision with a #11 scalpel blade. This was carried down through the skin into the subcutaneous tissue using electrocautery for hemostasis. Once the fascia was encountered, it was incised along the midline, grasped and elevated with Smooth clamps and divided further. The peritoneum was then bluntly opened using a hemostat. A finger was placed inside the peritoneal cavity to assure that there were no rey-incisional adhesions. Next, 2-0 Vicryl sutures were placed in a dsnnsi-yc-ewabt fashion to secure the Jenifer trocar, which was then inserted and insufflation was begun. Once insufflation was complete, [place] [address] OPERATIVE REPORT Name: THEO MSITH Room: [facility].#: [id number] Admission: 04/19/19 Attend Phys: Jose Butts DO Discharge: Date of : 58 Report #: [id number] visual inspection of the anterior abdominal organs was performed. This immediately revealed a suspicious looking mass-like appearance of the gallbladder with omental adhesions surrounding the gallbladder and this mass appeared to be invading into the liver at the superior edge. I was immediately concerned that this could represent gallbladder cancer. We did place three more 5 mm trocars and after doing so, I was able to sweep down some of the omental adhesions using blunt dissection as well as electrocautery. As I continued the dissection downward, the entire gallbladder appeared to have a similar appearance, which was quite nodular and thick and white in appearance and very firm and appeared to be also right up to the edge of the liver and involving portions of the liver as well. As I continued dissection down farther towards the moriah hepatis and the cystic duct, I was eventually unable to visualize the appropriate anatomy and because of my suspicion of gallbladder cancer, I did ask the pathologist, Dr. Gomez to come into the room and visualize. I also removed a portion of the thick rind of capsule that was surrounding the gallbladder in hopes that this would be diagnostic for us. I did take a piece of this off using sharp dissection. It was quite firm and hard and difficult to cut, but we did pass this off and have Dr. Gomez do a frozen section on it. Once he returned with the result which just said thick fibrous tissue and no evidence of cancer, I did consult with him and we both looked at the gallbladder quite a bit and I felt that at this point, it was best to abort the procedure and refer the patient to a hepatobiliary surgeon where she could potentially just to have her gallbladder removed and have pathology to examine it at that time and if she needed to have a liver resection that could be performed then or potential biopsy or further evaluation could be performed before surgery. At this point, I broke scrub and went out and spoke to the patient's family. I did show them pictures and explained to them that we would be referring her to a hepatobiliary surgeon for further evaluation. They expressed understanding and wanted to make sure that I would discuss with the patient as well. Afterwards, I then went back to the operating room, rescrubbed and then we stopped the insufflation. All of the trocars were removed under direct vision. We closed the umbilical fascia using the 2 previously placed 0 Vicryl sutures plus 2 additional 0 Vicryl sutures. All of the skin incisions were injected with 0.5% Marcaine without epinephrine and then closed using 4-0 Monocryl subcuticular stitches. Mastisol, Steri-Strips, sterile OpSite and pressure dressings were placed. The patient was awakened in the operating room and transported to recovery room in stable condition. By: [id number] Butts DO /jonas
[2019-04-19 06:49] LABS: CALCIUM 9.6 mg/dL (8.5-10.1); CREATININE 1.3 mg/dL (0.6-1.3)
[2019-04-19 06:53] LABS: ALBUMIN 3.8 g/dL (3.4-5.0); TOTAL BILIRUBIN 0.4 mg/dL (<0.1-1.0); TOTAL PROTEIN 6.9 g/dL (6.4-8.2)
--- NOTE | 2019-04-20 14:06 | PATH ---
[address] [address] PATHOLOGY RPT PROCEDURE Name: THEO SIMTH Room: [facility]#: [id number] Admission: 04/19/19 Date of : 58 Discharge: Report #: [id number] Path Case #: [id number] [facility] Accession Number: [id number] . 01 Material submitted: . gallbladder - GALLBLADDER CAPSULE - FS . 02 Frozen section diagnosis: . INTRAOPERATIVE CONSULTATION WITH FROZEN SECTION: (Dr. Julius Gomez) . Gallbladder capsule: - Dense fibrous tissue with chronic inflammation. - No malignancy and no epithelial elements identified. . Results are relayed to Dr. Butts in the operating room and a note is entered into the medical record. (JT:mm; 04/19/2019) . . . FROZEN SECTION GROSS DESCRIPTION: Received fresh from the operating room is an irregular plate-like segment of firm light yellow to pink tissue having greatest dimensions of 2.5 x 1.5 cm, ranging in thickness from 0.[address] Butts demonstrates this comes from a very irregular firm gallbladder wall, which has a rind around it and has the appearance of a porcelain gallbladder with possible infiltrative neoplasm. Dr. Butts requests intraoperative evaluation. The tissue is cut into to result in several cross sections and all of the submitted tissues are submitted for frozen study with the remainder of that tissue frozen submitted in cassette A1. (JT:mm; 04/19/2019) . . . Frozen section performed at [facility], [address] [place] [id number]. BS/QL . 03 Diagnosis: Gallbladder capsule: - Benign dense fibrous tissue with mild chronic inflammation and with no epithelial elements identified. . (JT:mml; 04/20/2019) QLM 04/20/2019 1225 Local . 03 Electronically signed: . [address] [address] PATHOLOGY RPT PROCEDURE Name: THEO SMITH Room: [facility].#: [id number] Admission: 04/19/19 Date of : 58 Discharge: Report #: [id number] Path Case #: [id number] Julius Maribel Gomez MD, Pathologist NPI- [id number] . 01 Gross description: . PLEASE SEE FROZEN SECTION GROSS DESCRIPTION /TOB 04/20/2019 0924 Local . 03 Pathologist provided ICD-10: K81.1 . 03 CPT . 296798, 682226 Specimen Comment: A courtesy copy of this report has been sent to Specimen Comment: [phone], . Specimen Comment: Report sent to / DR BAI Performed at: [address] [facility], [place], [place] [id number] MD Supa Jessica MD Phone: [phone] Performed at: 02 [facility] [address], [place] [id number] MD Julius Gomez MD Phone: [phone] Performed at: 03 [facility] [address] [place], [place] [id number] MD Julius Gomez MD Phone: [phone]
== END | disposition home or self-care (01) ==
LOC: M.SUR 05:50
PROVIDERS: Surgery
DX: K82.8 Other specified diseases of gallbladder (principal); K81.1 Chronic cholecystitis; K66.0 Peritoneal adhesions (postprocedural) (postinfection); Z88.8 Allergy status to other drugs, medicaments and biological substances; Z79.899 Other long term (current) drug therapy

== ENCOUNTER → 2019-04-27 | Outpatient (CLI) | payer OTHER | LOC: M.MRI 08:03 | DX: C23 Malignant neoplasm of gallbladder (principal); K80.80 Other cholelithiasis without obstruction ==

== ENCOUNTER → 2019-05-18 | Outpatient (CLI) | payer OTHER ==
[2019-05-18 23:06] LABS: GLYCOHEMOGLOBIN (HGB A1C) 5.4 % (4.8-5.6)
== END ==
LOC: M.LAB 09:28
PROVIDERS: Nurse Practitioner Family
DX: E11.9 Type 2 diabetes mellitus without complications (principal); I10 Essential (primary) hypertension